=== PATIENT | female | born 1950 | race Two or more races ===

== ENCOUNTER 2022-01-31 21:48 | Emergency (ER) | payer OTHER ==
[~2022-01-31] VITALS: Ht 162.6 cm; Wt 63.5 kg
[2022-01-31] MEDS ORDERED: COZAAR25 MG PO (22:01)
[2022-02-01] MEDS ORDERED: ZYNCOF 20-400120 ML PO (00:37)
== END 2022-02-01 00:55 ==
LOC: ER 21:48
DX: U07.1 COVID-19 (principal)

== ENCOUNTER → 2023-11-14 12:04 | Outpatient (CLI) | payer OTHER ==
[~2023-11-14 12:04] MED LIST: COZAAR25 MG PO; ZYNCOF 20-400120 ML PO
== END | disposition home or self-care (01) ==
LOC: NUCLEAR 12:04
PROVIDERS: ATTEND Psychiatry & Neurology Clinical Neurophysiology
DX: G31.09 Other frontotemporal neurocognitive disorder (principal)
CPT/HCPCS: 78803; A9557